=== PATIENT | male | born 1985 | race Caucasian/White ===

== ENCOUNTER 2022-08-29 23:47 | Inpatient (IN) | payer OTHER, SELFPAY ==
--- NOTE | ~2022-08-29 | CT_ITS ---
EXAMINATION: CT brain wo con DATE: 08/30/2022 02:17 INDICATION: Head injury. TECHNIQUE: Computed tomography (CT) of the head was performed without intravenous contrast. The mA wa s adjusted according to patient size. Iterative reconstruction technique was employed. The dose-lengt h product was 681.00 mGy-cm. COMPARISON: None FINDINGS: There is no intracranial hemorrhage, acute infarction, or abnormal intracranial mass lesion . The ventricles are normal in size. There is mild mucosal thickening in the paranasal sinuses. The o rbits are normal. The mastoid air cells are normal. IMPRESSION: 1. Normal brain. Reviewed, dictated and finalized at location A. IMPRESSION: 1. Normal brain.
--- NOTE | ~2022-08-29 | XR_ITS ---
EXAMINATION: XR chest 1V portable DATE: 08/30/2022 00:59 INDICATION: Abnormal liver function tests. Left shoulder pain. TECHNIQUE: A single frontal view of the chest was obtained. COMPARISON: None. FINDINGS: The chest demonstrates clear lungs without pneumonia, pleural effusion, or pneumothorax. Th e heart size is normal. There is a comminuted fracture of distal left clavicle. IMPRESSION: 1. Comminuted fracture of distal left clavicle. Reviewed, dictated and finalized at location A.
--- NOTE | ~2022-08-29 | CT_ITS ---
EXAMINATION: CT cervical spine wo con DATE: 08/30/2022 02:18 INDICATION: Head injury. TECHNIQUE: Computed tomography (CT) of the cervical spine was performed without intravenous contrast. Automated exposure control and iterative reconstruction technique were employed. The dose-length pro duct was 367.58 mGy-cm. COMPARISON: None FINDINGS: There is 6 degrees dextrocurvature of cervical spine. Vertebral body heights are normal. Th ere is mildly decreased disc height at C5-C6. There is a fracture of left T1 transverse process. Ther e are fractures of left first and second ribs. The following disc levels are specifically discussed: C2-C3: There is no uncovertebral joint osteoarthritis. There is mild right and moderate left facet sawyer int osteoarthritis. There is mild left neural foraminal stenosis. There is no central canal stenosis. C3-C4: There is mild right and severe left uncovertebral joint osteoarthritis. There is mild right fa cet joint osteoarthritis. There is mild left neural foraminal stenosis. There is no central canal edie nosis. C4-C5: There is mild left uncovertebral joint osteoarthritis. There is mild bilateral facet joint ost eoarthritis. There is no neural foraminal stenosis. There is no central canal stenosis. C5-C6: There is mild bilateral uncovertebral joint osteoarthritis. There is no facet joint osteoarthr itis. There is no neural foraminal stenosis. There is mild central canal stenosis. C6-C7: There is mild bilateral uncovertebral joint osteoarthritis. There is mild bilateral facet join t osteoarthritis. There is no neural foraminal stenosis. There is mild central canal stenosis. C7-T1: There is no uncovertebral joint osteoarthritis. There is moderate bilateral facet joint osteoa rthritis. There is mild bilateral neural foraminal stenosis. There is no central canal stenosis. IMPRESSION: 1. Fractures of left T1 transverse process and left first and second ribs. 2. Mild cervical spondylosis. Reviewed, dictated and finalized at location A.
--- NOTE | ~2022-08-29 | CT_ITS ---
[facility]AM[facility]: [facility] DATE: 08/30/2022 03:15 INDICATION: Chest and abdominal injury. TECHNIQUE: Computed tomography (CT) of the chest, abdomen, pelvis, thoracic spine, and lumbar spine w as performed with 100 mL Omnipaque 350 intravenous contrast. Automated exposure control and iterative reconstruction technique were employed. The dose-length product was 796.01 mGy-cm. COMPARISON: None FINDINGS: CHEST CT: The lungs demonstrate mild dependent atelectasis. No pleural effusion. The heart size is normal. No p ericardial effusion. There is a comminuted fracture of distal left clavicle. ABDOMEN/PELVIS CT: There is diffuse hepatic steatosis. The gallbladder, spleen, pancreas, adrenal glands, and kidneys ar e normal. There are no dilated loops of bowel. The appendix is normal. There are no pathologically en larged lymph nodes. There is no free intraperitoneal fluid. THORACIC SPINE CT: There is 8 degrees dextrocurvature of thoracic spine. There is a fracture of left T1 transverse proce ss. There are fractures of the heads of the left first and second ribs. There is a Schmorl's node of inferior endplate of T11. There is mildly decreased disc height at T11-T12. At T11-T12, the disc is b ulging with mild central canal stenosis. There is multilevel mild facet joint osteoarthritis. No neur al foraminal stenosis. LUMBAR SPINE CT: Bone alignment is normal. Vertebral body heights are normal. Intervertebral disc heights are normal. The following disc levels are specifically discussed: L1-L2: The disc does not extend beyond the endplate margin. There is mild bilateral facet joint osteo arthritis. There is no neural foraminal stenosis. There is no central canal stenosis. L2-L3: The disc does not extend beyond the endplate margin. There is mild bilateral facet joint osteo arthritis. There is no neural foraminal stenosis. There is no central canal stenosis. L3-L4: There is a left foraminal protrusion. There is mild bilateral facet joint osteoarthritis. Ther e is no neural foraminal stenosis. There is no central canal stenosis. L4-L5: The disc is bulging. There is mild bilateral facet joint osteoarthritis. There is mild bilater al neural foraminal stenosis. There is no central canal stenosis. L5-S1: The disc is bulging. There is mild bilateral facet joint osteoarthritis. There is mild bilater al neural foraminal stenosis. There is no central canal stenosis. IMPRESSION: 1. Comminuted fracture of distal left clavicle. 2. Fracture of left T1 transverse process. 3. Fractures of the heads of the left first and second ribs. Reviewed, dictated and finalized at location A.
--- NOTE | ~2022-08-29 | XR_ITS ---
EXAMINATION: XR shoulder LT min 2V DATE: 08/30/2022 00:59 INDICATION: Left shoulder pain. TECHNIQUE: 2 views of left shoulder were obtained. COMPARISON: None. FINDINGS: There is a comminuted fracture of distal left clavicle. The distal fracture fragments demon strate superior and inferior displacement. Joint spaces are normal. IMPRESSION: 1. Comminuted fracture of distal left clavicle. Reviewed, dictated and finalized at location A.
[2022-08-30] VITALS (11 sets, daily range): BP systolic 106–144; BP diastolic 54–100; PULSE 68–117; RESP 12–20; TEMP 36.3–36.6; O2SAT 98–100; BMI 24.5
--- NOTE | 2022-08-30 00:10 | ECG_ITS ---
Measurements Intervals [place] Rate: 97 P: 48 GA: 124 QRS: 35 QRSD: 92 T: 52 QT: 336 QTc: 427 Interpretive Statements SINUS RHYTHM NORMAL ECG NO PREVIOUS ECG AVAILABLE FOR COMPARISON Electronically Signed On 08-30-2022 12:33:26 CDT by Hussein Page M.D.
[2022-08-30] MEDS: LACTATED RINGERS 1,000 ML 999 ML IV CONT ×2 (00:28→03:37)
[2022-08-30] MEDS: LORazepam (*CRX) 1 MG TABLET PO (00:29)
[2022-08-30 01:11] LABS: Basophils Absolute Auto 0.1 K/mm3 (0.0-0.1); Basophils Percent Auto 0.7 % (0.2-1.2); Eosinophils Percent Auto 0.1 % (0-4.4); Hematocrit 45.5 % (42.0-52.0); Hemoglobin 15.7 g/dL (14.0-18.0); Immature Granulocyte Absolute 0.09 K/mm3 (0.00-0.031); Immature Granulocyte Percent A 0.6 % (0-0.5); Lymphocytes Absolute Auto 0.46 K/mm3 (0.9-3.2); Mean Corpuscular HGB Conc 34.5 g/dl (32-36); Mean Corpuscular Hemoglobin 32.2 pg (26-34); Mean Corpuscular Volume 93.4 fl (80-100); Mean Platelet Volume 9.8 fl (7.4-10.4); Monocytes Absolute Auto 0.8 K/mm3 (0.1-0.6); Monocytes Percent Auto 5.2 % (2.6-8.5); Neutrophils Absolute Auto 13.9 K/mm3 (1.3-6.7); Neutrophils Percent Auto 90.4 % (45.5-73.1); Platelet Count Result 197 k/mm3 (150-375); Red Blood Count 4.87 M/mm3 (4.6-6.20); Red Cell Distribution Width 11.9 % (11.5-14.5); White Blood Count 15.3 K/mm3 (4.5-10.0)
[2022-08-30] MEDS: ACETAMINOPHEN 500 MG TABLET 1000 MG PO (01:15)
[2022-08-30] MEDS: TETANUS,DIPHTHERIA,AC PERTUSSIS ADULT (0.5 ML) BOOSTRIX IM (01:15)
[2022-08-30 01:24] LABS: Acetaminophen < 10 ug/mL (10-30); Ethanol < 10 mg/dL (<10); Salicylate < 1.0 mg/dL (2-20)
--- NOTE | 2022-08-30 01:27 | PC.NURSE ---
Pt attempted to provide urine sample, unsuccessful. Urinal at bedside. EDP Hao aware.
[2022-08-30 01:35] LABS: Alanine Aminotransferase 397 U/L (6-50); Albumin Level 4.7 g/dL (3.5-5.1); Alkaline Phosphatase 87 U/L (38-126); Anion Gap 21 mmol/L (8-16); Bilirubin,Total 1.5 mg/dL (0.2-1.3); Blood Urea Nitrogen 20 mg/dL (9-20); Calcium 9.7 mg/dL (8.4-10.2); Carbon Dioxide 21 mmol/L (22-30); Chloride 97 mmol/L (98-107); Estimated CRCL calculation 71 ml/min; Estimated Glomerular Filt Rate 58; Glucose 78 mg/dL (65-110); Potassium 3.9 mmol/L (3.4-5.0); Sodium 139 mmol/L (137-145)
[2022-08-30 02:03] LABS: Aspartate Amino Transferase 2333 U/L (17-59)
--- NOTE | 2022-08-30 02:07 | WC.ED.TRAUMA ---
HPI - Trauma General Chief Complaint: Extremity Injury, Upper Stated Complaint: posible shoulder injury Time Seen by Provider: 08/29/22 23:50 History of Present Illness HPI narrative: 56-year-old male with history of polysubstance use disorder was found by police knocking on random doors and holding a stick, he gives us further convoluted account of things but ultimately states that he had fallen earlier, is not sure why exactly, but thinks that he broke his collarbone. He does admit using meth recently and states that that was a mistake. Does have history of bipolar disorder. Denies any other drug use. Is endorsing pain in his left shoulder and body aches all over. Related Data Allergies Allergy/AdvReac Type Severity Reaction Status Date / Time No Known Allergies Allergy Verified 08/30/22 01:06 Review of Systems Review of Systems: CONST: No fever. HEENT: Head trauma C/V: No chest pain; pain in left clavicle RESP: Mild shortness of breath GI: Minimal abdominal discomfort : Dark urine M/S: Left shoulder pain SKIN: Abrasions lower extremities NEURO: [No focal numbness or weakness] PSYCH: States that there are snakes going after him Exam Narrative: EXAMINATION OF ORGAN SYSTEMS/BODY AREAS: Constitutional: Vital signs per nursing GENERAL: Appears slightly agitated HEAD: Contusion left head EYES: EOMI, conjunctiva normal ENT: Hearing grossly intact LUNGS: Nonlabored breathing. Tenderness palpation left clavicle HEART: Tachycardic ABD: [Soft], [nontender to palpation] EXT: Normal range of motion, abrasions and bruising bilateral upper and lower extremities SKIN: Abrasion and bruising as above NEURO: [Alert and oriented x 3. No gross focal sensory or strength deficits.] PSYCH: Talking to himself in room, hyperverbal Course Vital Signs Vital signs: Vital Signs Pulse Rate 111 H 08/30/22 00:05 Respiratory Rate 12 08/30/22 00:05 Blood Pressure 129/100 H 08/30/22 00:05 Pulse Oximetry 100 08/30/22 00:05 Oxygen Delivery Room Air 08/30/22 00:05 Pulse Rate 98 08/30/22 05:30 Respiratory Rate 16 08/30/22 05:30 Blood Pressure 124/78 08/30/22 05:30 Pulse Oximetry 98 08/30/22 05:30 Oxygen Delivery Room Air 08/30/22 00:05 MDM - Trauma MDM Narrative Medical decision making narrative: 36-year-old male presents after being found by police wandering into [employer], he is endorsing pain to his left clavicle, vital signs notable for tachycardia, on exam he does have a left clavicle tenderness and abrasions everywhere, he does admit to recent meth use. Abdomen is soft and nontender. Differential includes meth induced psychosis or chest pain, clavicle fracture, rhabdomyolysis. Labs obtained notable for leukocytosis, and mildly elevated creatinine, and extremely elevated AST. UA shows ketones and blood and WBCs. Patient is hydrated, started on antibiotics tentatively for the possible UTI per hospitalist request, I did discuss with gastroenterology regarding his elevated AST and the marine consultant recommended admission and work-up with hepatic panel. Imaging showed shoulder x-ray/chest x-ray with clavicle fracture on the left, which patient is placed in a sling, normal CT head, CT C-spine did show a T spine transverse process fracture, given this I did obtain a CT chest, abdomen, pelvis given the patient is a poor historian to make sure there were no other signs of trauma including any signs of internal injuries. This is negative for anything else other than the aforementioned fractures. Patient has no neurologic symptoms, routine consult to neurosurgeon placed, case discussed with hospitalist for admission at this time. Critical care time 31 minutes Lab Data Result diagrams: 08/30/22 00:31 08/30/22 00:31 Labs: Lab Results 08/30/22 08/30/22 08/30/22 Range/Units 00:31 00:31 00:31 WBC 15.3 H (4.5-10.0) K/mm3 RBC 4.87 (4.6-6.20) M/mm3 Hgb 15.7
[2022-08-30 02:53] LABS: Appearance Urine Clear (Clear); Bilirubin Urine 3+ (Negative); Blood Urine 3+ (Negative); Color Urine Amber (Yellow); Glucose Urine UA Negative (Negative); Ketones Urine 4+ mg/dL (Negative); Leukocyte Esterase Ur Negative LEU/UL (Negative); Nitrate Urine Negative (Negative); Protein Urine 3+ mg/dL (Negative); Specific Grav Ur >= 1.030 (1.001-1.035)
[2022-08-30 03:00] LABS: Bacteria Urine Trace /hpf; Mucus Urine Few /lpf; Squamous Epithelial Cell Urine Rare /hpf (Few); WBC Urine 21-30 /hpf
[2022-08-30 03:07] LABS: Add Urine Microscopic? YES
[2022-08-30 03:08] LABS: Barbiturate Screen Urine Negative (Negative); Benzodiazepines Screen Urine Positive (Negative)
[2022-08-30 03:34] LABS: Amphetamine Screen Urine Positive (Negative); Cannabinoid Screen Urine Negative (Negative); Cocaine Screen Urine Negative (Negative); Methadone Screen Urine Negative (Negative); Opiate Screen Urine Positive (Negative); Phencyclidine Screen Urine Negative (Negative)
[2022-08-30 04:54] LABS: SARS-CoV-2 RNA PCR Negative
--- NOTE | 2022-08-30 05:02 | PM.IMHP ---
H&P: HPI History of Present Illness Date/Time: 08/30/22 05:02 Chief Complaint: 36 years old male with polysubstance abuse history of bipolar presented to the hospital by police patient was knocking on the doors holding a stick patient is poor historian patient also was complaining of possible fracture of collarbone as he has multiple falls history was taken from the ER record and the patient and ER physician at the ER patient was found to have significantly elevated AST normal liver function test abnormal UA leukocytosis CT scan of the head chest x-ray CT scan of the chest abdomen and pelvis is pending patient was admitted to the hospital for acute liver injury management UTI management and altered mental status per ER physician patient have right clavicular fracture Review of Systems Review of Systems: Twelve system review was negative except above Meds Home Medications and Allergies Allergies Allergy/AdvReac Type Severity Reaction Status Date / Time No Known Allergies Allergy Verified 08/30/22 01:06 Vital Signs Vital Signs - 24 hr 08/30/22 00:05 08/30/22 00:58 08/30/22 03:16 Pulse Rate 111 H 103 H 104 H Respiratory Rate 12 20 19 Blood Pressure 129/100 H 140/93 H 116/97 H Pulse Oximetry 100 100 Oxygen Delivery Room Air Exam Narrative: GENERAL: Lying in bed comfortable HEAD: Normocephalic, atraumatic. NECK: Supple. No adenopathy, no masses. RESPIRATORY: Airway patent, respirations nonlabored. Clear to auscultation bilaterally, no rales, rhonchi, wheezing. CARDIOVASCULAR: Regular rate and rhythm without murmurs, rubs, or gallops. Peripheral pulses 2+ and equal bilaterally. ABDOMINAL: Soft, nontender, nondistended, no hepatosplenomegaly. Normoactive BS. MUSCULOSKELETAL: Left clavicular tenderness associated with restriction of the joint movement of the left shoulder area SKIN: Warm, dry, normal color. No rashes. NEURO: Alert oriented no focal deficit PSYCHIATRIC: Appropriate mood and affect. Normal interaction. H&P: Results Labs Labs: Short CBC 08/30/22 Range/Units 00:31 WBC 15.3 H (4.5-10.0) K/mm3 Hgb 15.7 (14.0-18.0) g/dL Hct 45.5 (42.0-52.0) % Plt Count 197 (150-375) k/mm3 [facility] 08/30/22 00:31 Sodium 139 Potassium 3.9 Chloride 97 L Carbon Dioxide 21 L BUN 20 Creatinine 1.40 H Glucose 78 Calcium 9.7 Liver Function 08/30/22 Range/Units 00:31 Total Bilirubin 1.5 H (0.2-1.3) mg/dL AST 2333 H (17-59) U/L ALT 397 H (6-50) U/L Alkaline Phosphatase 87 (38-126) U/L Albumin 4.7 (3.5-5.1) g/dL Urine 08/30/22 Range/Units 02:36 Urine Color Elise (Yellow) Urine Appearance Clear (Clear) Urine pH 6.0 (5.0-9.0) Ur Specific [place] >= 1.030 (1.001-1.035) Urine Protein 3+ H (Negative) mg/dL Urine Glucose (UA) Negative (Negative) mg/dL Assessment and Plan Assessment and plan (1) Abnormal LFTs: Code(s): R79.89 - Other specified abnormal findings of blood chemistry Status: Acute Assessment and Plan: Check CK check hepatitis panel reviewed urine toxic screen check HIV A GI consult Pending CT scan of abdomen and pelvis Conservative management IV hydration Avoid hepatotoxic medication (2) UTI (urinary tract infection): Code(s): N39.0 - Urinary tract infection, site not specified Status: Acute Assessment and Plan: Started on Rocephin follow urine culture (3) Dehydration: Code(s): E86.0 - Dehydration Status: Acute Assessment and Plan: IV fluid (4) Polysubstance dependence including opioid type drug, episodic abuse: Code(s): F11.20 - Opioid dependence, uncomplicated; F19.20 - Other psychoactive substance dependence, uncomplicated Status: Acute Assessment and Plan: Follow-up with rehab as outpatient Counseling when patient is more alert (5) Acute metabolic encephalopathy: Code(s): G93.41 - Metabolic encephalopathy Status:
[2022-08-30 05:18] LABS: Partial Thromboplastin Time 23.7 SECONDS (22.3-36.8); Prothrombin Time 12.7 Seconds (11.1-14.7)
[2022-08-30 06:10] LABS: Hepatitis B Surface Antigen Negative (Negative)
[2022-08-30 06:16] LABS: HAV RESULT Negative (Negative); Hepatitis B Core IgM Result Negative (Negative)
--- NOTE | 2022-08-30 06:19 | PC.NURSE ---
Patient arrived on 3 Med-Surg at 6:09 on 08/30/2022
[2022-08-30 06:28] LABS: Hepatitis C Virus Antibody Negative (Negative)
[2022-08-30 07:52] LABS: Creatine Kinase > 16000 U/L (55-170)
--- NOTE | 2022-08-30 08:30 | PC.NURSE ---
maintenance mechanic 2nd shift RN reached out to family to try to get better information. Grandmother called back and states that patient has been living in [place] for the last 7 years and just recently came back to this area. She states that patient has stopped by a few times in the last couple of days, but has been staying at a friend's house. She does not know what friend he stays with. She said that his mother has been in [place] and that she raised the patient. She does not know of any past surgeries, but states that patient has depression, anxiety and ADHD and has had problems with drugs in the past. She states that the last time she saw him he looked like he was high on drugs and that he was planning to go back to [place]. She believes that he stays with friends in [place] as well and does not have a current job or residence.
[2022-08-30] MEDS: SODIUM CHLORIDE 0.9% IV 1,000 ML 150 ML IV CONT (08:37)
[2022-08-30 08:49] LABS: Alanine Aminotransferase 365 U/L (6-50); Albumin Level 4.3 g/dL (3.5-5.1); Alkaline Phosphatase 78 U/L (38-126); Anion Gap 22 mmol/L (8-16); Bilirubin,Total 1.2 mg/dL (0.2-1.3); Blood Urea Nitrogen 18 mg/dL (9-20); Carbon Dioxide 18 mmol/L (22-30); Chloride 97 mmol/L (98-107); Estimated CRCL calculation 90 ml/min; Estimated Glomerular Filt Rate > 60; Glucose 91 mg/dL (65-110); Potassium 4.1 mmol/L (3.4-5.0); Sodium 137 mmol/L (137-145)
[2022-08-30 09:14] LABS: Thyroid Stimulating Hormone Reflex 0.546 uIU/mL (0.465-4.68)
[2022-08-30 09:22] LABS: Aspartate Amino Transferase 1945 U/L (17-59)
[2022-08-30 09:27] LABS: HIV 1/2 Ab P24 Ag Result Negative (Negative)
[2022-08-30 09:49] LABS: Basophils Absolute Auto 0.1 K/mm3 (0.0-0.1); Basophils Percent Auto 0.8 % (0.2-1.2); Eosinophils Absolute Auto 0.1 K/mm3 (0-0.3); Eosinophils Percent Auto 1.5 % (0-4.4); Hematocrit 41.2 % (42.0-52.0); Immature Granulocyte Absolute 0.04 K/mm3 (0.00-0.031); Immature Granulocyte Percent A 0.4 % (0-0.5); Lymphocytes Absolute Auto 1.55 K/mm3 (0.9-3.2); Lymphocytes Percent Auto 16.1 % (18.3-44.2); Mean Corpuscular Hemoglobin 32.1 pg (26-34); Mean Corpuscular Volume 94.5 fl (80-100); Mean Platelet Volume 9.4 fl (7.4-10.4); Monocytes Absolute Auto 0.9 K/mm3 (0.1-0.6); Monocytes Percent Auto 8.9 % (2.6-8.5); Neutrophils Percent Auto 72.3 % (45.5-73.1); Platelet Count Result 175 k/mm3 (150-375); Red Blood Count 4.36 M/mm3 (4.6-6.20); Red Cell Distribution Width 11.9 % (11.5-14.5); White Blood Count 9.6 K/mm3 (4.5-10.0)
--- NOTE | 2022-08-30 12:40 | PC.NURSE ---
pt was wanting to discharge/ leave ama, took out IV and took off tele monitor. pt was educated on the risk factors of leaving. pt willing to stay and be compliant. pt in room resting on bed with call light in reach.
--- NOTE | 2022-08-30 12:43 | PM.CNOR ---
Assessment and Plan Assessment and plan (1) Closed left clavicular fracture: Qualifiers: Encounter type: initial encounter Clavicle location: lateral end Fracture alignment: displaced Qualified Code(s): S42.032A - Displaced fracture of lateral end of left clavicle, initial encounter for closed fracture Code(s): S42.002A - Fracture of unspecified part of left clavicle, initial encounter for closed fracture Status: Acute Assessment and Plan: New patient evaluation status post injury left shoulder. The history, physical exam and radiographs reviewed with the patient. Type of fracture discussed in detail. Left lateral clavicle fx. Treatment options including operative and non operative treatment reviewed. Risks, benefits and alternatives of each treatment discussed in detail. The patient has declined surgical treatment. Risks of treatment decision discussed in detail. Potential problems with displacement of the fracture, loss of alignment, nonunion, malunion and dysfunction discussed in detail. The patient's questions were answered. They verbalized understanding and agreement. Conservative treatment with immobilization- sling, ice, pain control. Fracture precautions with light activity only. No overhead use. May adjust sling p.r.n. and remove for hygiene /dressing. Follow-up in 6 weeks for new radiographs. History of Present Illness HPI Consult date: 08/30/22 Requesting physician: Cher Sutton APN-C Consult reason: fracture Chief complaint: Left clavicle fracture Narrative: 36-year-old admitted through the emergency room early this morning after fall. Left shoulder pain. Found to have clavicle fracture. Denies numbness or tingling. Complains of pain over the distal collarbone and top of the shoulder. Review of Systems Constitutional: Constitutional: Denies fever(s) Eyes: Eyes: Denies blurry vision ENT: Reports Normal hearing present Cardiovascular: Cardiovascular: Denies chest pain and Denies dyspnea Respiratory: Respiratory: Denies dyspnea and Denies wheezing Gastrointestinal: Gastrointestinal: Denies abdominal pain Genitourinary: Genitourinary: Denies urinary urgency Musculoskeletal: Musculoskeletal: Reports as per HPI and Denies numbness Integumentary/Breasts: Skin/Breast: Denies changing lesions and Denies sores Neurologic: Reports Normal hearing present, Denies behavioral changes, Denies confusion, Denies numbness and Denies convulsions Psychiatric: Psychiatric: Denies behavioral changes, Denies confusion and Denies hallucinations Endocrine: Endocrine: Denies heat intolerance Hematologic/Lymphatic: Hematologic/Lymphatic: Denies easy bleeding Allergic/Immunologic: Allergic/Immunologic: Denies wheezing [facility] Social History Social History Smoking status: Never smoker Alcohol intake: former Substance use: former Substance use type: amphetamines Other substance usage details: see positive urine test. pt wont answer. Has the Lack of Transportation Kept You From Medical Appointments or From Getting Medications?: No Within the Past 12 Months, Were You Worried Whether Your Food Would Run Out Before You Got Money to Buy More?: Never True What is Your Housing Situation Today?: I Do Not Have Housing Are You Worried That in the Next 2 Months, You May Not Have Your Own Housing to Live In?: Decline to Answer Do You Have Trouble Paying Your Heating Or Electricity Bill?: Decline to Answer Do You Have Trouble Paying For Medicines?: Decline to Answer Are You Currently Unemployed and Looking for Work?: Decline to Answer Highest Level of Education Completed: Decline to Answer Do You Have Trouble With Childcare or the Care of a Family Member?: Decline to Answer Spiritual care concerns: No Meds Home Medications and Allergies Allergies Allergy/AdvReac Type Severity Reaction Status Date / Time No Known
--- NOTE | 2022-08-30 14:02 | PM.IMPN ---
Progress Note: A&P Assessment and Plan (1) Abnormal LFTs: Code(s): R79.89 - Other specified abnormal findings of blood chemistry Status: Acute Assessment and Plan: Check CK check hepatitis panel reviewed urine toxic screen check HIV A GI consult Pending CT scan of abdomen and pelvis Conservative management IV hydration Avoid hepatotoxic medication 08/30/22: CT of the abdomen pelvis negative with exception of what is mentioned HPI. GI consult is pending. IV fluids were increased to 150 mL/hour secondary to persistently elevated CK of greater than 16,000. In addition he continues to have marked Transaminitis. (2) UTI (urinary tract infection): Code(s): N39.0 - Urinary tract infection, site not specified Status: Acute Assessment and Plan: Started on Rocephin follow urine culture 08/30/22: Awaiting culture, continuing Rocephin (3) Dehydration: Code(s): E86.0 - Dehydration Status: Acute Assessment and Plan: Continue IVF of NS and increase the rate to 150 ml/hr. (4) Polysubstance dependence including opioid type drug, episodic abuse: Code(s): F11.20 - Opioid dependence, uncomplicated; F19.20 - Other psychoactive substance dependence, uncomplicated Status: Acute Assessment and Plan: Follow-up with rehab as outpatient Counseling when patient is more alert 08/30/22: Pt. admits that he uses meth, but is insistent that his record of events is factual. (5) Acute metabolic encephalopathy: Code(s): G93.41 - Metabolic encephalopathy Status: Acute Assessment and Plan: Most likely related to polysubstance abuse amphetamine benzos Narcotics Improved Pending CT scan of the head 08/30/22: Pt. still appears very confused in his factual events as noted in HPI. Although he is more alert, and his CT of brain is pending,. Pt. continues to appear confused. (6) Closed left clavicular fracture: Qualifiers: Clavicle location: lateral end Encounter type: initial encounter Fracture alignment: displaced Qualified Code(s): S42.032A - Displaced fracture of lateral end of left clavicle, initial encounter for closed fracture Code(s): S42.002A - Fracture of unspecified part of left clavicle, initial encounter for closed fracture Status: Acute Assessment and Plan: Pending final x-ray Left arm sling Pain control 08/30/22: Orthopedics consulted and pt. is in sling. They want to follow up in six weeks with him with imaging prior to the office visit. Treat pain prn. (7) Ribs, multiple fractures: Code(s): S22.49XA - Multiple fractures of ribs, unspecified side, initial encounter for closed fracture Status: Acute Assessment and Plan: 08/30/22: as evidence by chest x-ray and CT. Patient was educated on splinting for coughing sneezing. Treat pain p.r.n. (8) Fracture of transverse process of thoracic vertebra: Code(s): S22.009A - Unspecified fracture of unspecified thoracic vertebra, initial encounter for closed fracture Status: Acute Assessment and Plan: 08/30/22: neurosurgery consult pending. treat pain prn. Time Spent With Patient Time with patient: 25 - 35 minutes Subjective Date/time seen: 08/30/22 1130 This patient was examined at the bedside today interval assessment after being admitted to the hospital with profound rhabdomyolysis, transaminitis, cystitis and left clavicular fracture. This patient's story is very interesting as it is difficult to determine what is true and what is not. Patient presented to the emergency room in custody of police for evaluation after he was found to be knocking on random doors holding a stick, however his endorsed account of what happened was very convoluted in 2 year unable to determine what really happened. Patient states that he is here in the [place] for [employer] training in that he fell into a ravine. He states he land
--- NOTE | 2022-08-30 15:20 | WPDGICN ---
Assessment and Plan Assessment and plan (1) Abnormal LFTs: Code(s): R79.89 - Other specified abnormal findings of blood chemistry Status: Acute Assessment and Plan: most likely this is from elevated CK after having a fracture with multiple falls and also history of polysubstance abuse he may have underlying fatty liver disease but transaminases elevated as consequence of high CK levels I will recommend to repeat lft's as outpatient once CK level down to normal- if still high then may need further work up continue with hydration, monitor renal function hepatitis panel negative abdominal imaging reviewed follow from af[place], call if questions (2) Rhabdomyolysis: Code(s): M62.82 - Rhabdomyolysis Status: Acute Assessment and Plan: after a fall and fracture monitor (3) Closed left clavicular fracture: Qualifiers: Clavicle location: lateral end Encounter type: initial encounter Fracture alignment: displaced Qualified Code(s): S42.032A - Displaced fracture of lateral end of left clavicle, initial encounter for closed fracture Code(s): S42.002A - Fracture of unspecified part of left clavicle, initial encounter for closed fracture Status: Acute Assessment and Plan: ortho on board (4) Acute metabolic encephalopathy: Code(s): G93.41 - Metabolic encephalopathy Status: Acute Assessment and Plan: probably from polysubstance abuse by primary (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 Blood work in ER showed white blood cell count 15.3, acute kidney injury with creatinine of 1.4, total bilirubin of 1.5, AST of 2333, ALT 397, urinalysis with 3+ blood, 3+ bili 21-30 wbc's and trace bacteria.? His UDS was positive for opiates, amphetamines and benzodiazepines.? Alcohol was less than 10.? hepatitis panel negative and CK greater than 16,000.?CT scan of the left shoulder demonstrate a comminuted fracture of the distal left clavicle, evaluated by orthopedic.?CT a/p reviewed, diffuse hepatic steatosis. The gallbladder, spleen, pancreas, adrenal glands, and kidneys are normal. There are no dilated loops of bowel. The appendix is normal. There are no pathologically enlarged lymph nodes. There is no free intraperitoneal fluid. He denies history of liver disease. Drinks socially. Review of Systems Constitutional: Constitutional: Denies fever(s) Eyes: Eyes: Denies blurry vision ENT: Reports Normal hearing present Cardiovascular: Cardiovascular: Denies chest pain and Denies dyspnea Respiratory: Respiratory: Denies dyspnea and Denies wheezing Gastrointestinal: Gastrointestinal: Denies abdominal pain Genitourinary: Genitourinary: Denies urinary urgency Musculoskeletal: Musculoskeletal: Reports as per HPI and Denies numbness Integumentary/Breasts: Skin/Breast: Denies changing lesions and Denies sores Neurologic: Reports Normal hearing present and Denies numbness Psychiatric: Psychiatric: Reports as per HPI Endocrine: Endocrine: Denies heat intolerance Hematologic/Lymphatic: Hematologic/Lymphatic: Denies easy bleeding Allergic/Immunologic: Allergic/Immunologic: Denies wheezing PMFSH Past Medical History Medical History (Updated 08/30/22 @ 15:28 by Girish Huntley MD) Rhabdomyolysis Social History Social History Smoking status: Never smoker Alcohol intake: former Substance use: former Substance use type: amphe
[2022-08-30] MEDS: SODIUM CHLORIDE 0.9% IV 1,000 ML 250 ML IV CONT ×2 (16:08→23:16)
--- NOTE | 2022-08-30 21:18 | PC.NURSE ---
Pt agitated and uncooperative. Attempted to redirect and reorient pt, successful at first but then pt was found wandering the hallway wanting to leave. Pt directed back to room. Security and doctor called. New orders placed. Pt allowed by hot car charger and doctor to go out to his car accompanied by security. Medications will be administered to pt once he returns.
[2022-08-30] MEDS: HYDROcodone/acetaminophen (*CRX) 10-325 MG TABLET 1 TAB PO (21:43)
[2022-08-30] MEDS: TEMAZEPAM (*CRX) 15 MG CAPSULE PO (21:44)
[2022-08-30 23:36] LABS: Creatine Kinase > 16000 U/L (55-170)
[2022-08-30] MEDS: oxyCODONE HCL (*CRX) 5 MG TAB IR 10 MG PO (23:52)
[2022-08-31] VITALS (8 sets, daily range): BP systolic 122–133; BP diastolic 80–95; PULSE 90–106; RESP 18; TEMP 36.4–36.6; O2SAT 95–100
--- NOTE | 2022-08-31 02:58 | PM.EVENT ---
Event Note Event Note Event Note: Called to evaluate patient who was threatening to leave AMA. I spoke with the patient, reviewed his diagnoses, emphasize the risks of leaving due to severe rhabdomyolysis and ultimately patient decided to stay for further treatment.
[2022-08-31] MEDS: SODIUM CHLORIDE 0.9% IV 1,000 ML 250 ML IV CONT ×6 (03:03→20:59)
[2022-08-31] MEDS: oxyCODONE HCL (*CRX) 5 MG TAB IR 10 MG PO ×2 (04:52→08:49)
[2022-08-31 06:21] LABS: Basophils Absolute Auto 0.1 K/mm3 (0.0-0.1); Eosinophils Absolute Auto 0.3 K/mm3 (0-0.3); Eosinophils Percent Auto 3.8 % (0-4.4); Hematocrit 36.2 % (42.0-52.0); Hemoglobin 12.4 g/dL (14.0-18.0); Immature Granulocyte Absolute 0.02 K/mm3 (0.00-0.031); Immature Granulocyte Percent A 0.3 % (0-0.5); Lymphocytes Absolute Auto 1.46 K/mm3 (0.9-3.2); Lymphocytes Percent Auto 21.2 % (18.3-44.2); Mean Corpuscular HGB Conc 34.3 g/dl (32-36); Mean Corpuscular Hemoglobin 32.1 pg (26-34); Mean Corpuscular Volume 93.8 fl (80-100); Mean Platelet Volume 9.1 fl (7.4-10.4); Monocytes Absolute Auto 0.6 K/mm3 (0.1-0.6); Monocytes Percent Auto 8.4 % (2.6-8.5); Neutrophils Absolute Auto 4.5 K/mm3 (1.3-6.7); Neutrophils Percent Auto 65.3 % (45.5-73.1); Platelet Count Result 154 k/mm3 (150-375); Red Blood Count 3.86 M/mm3 (4.6-6.20); Red Cell Distribution Width 11.7 % (11.5-14.5); White Blood Count 6.9 K/mm3 (4.5-10.0)
[2022-08-31 06:57] LABS: Alanine Aminotransferase 298 U/L (6-50); Albumin Level 3.5 g/dL (3.5-5.1); Alkaline Phosphatase 63 U/L (38-126); Anion Gap 7 mmol/L (8-16); Bilirubin,Total 0.8 mg/dL (0.2-1.3); Blood Urea Nitrogen 9 mg/dL (9-20); Carbon Dioxide 25 mmol/L (22-30); Chloride 105 mmol/L (98-107); Estimated CRCL calculation 136 ml/min; Estimated Glomerular Filt Rate > 60; Glucose 116 mg/dL (65-110); Potassium 3.5 mmol/L (3.4-5.0); Sodium 137 mmol/L (137-145)
[2022-08-31 07:15] LABS: Aspartate Amino Transferase 1179 U/L (17-59)
[2022-08-31 07:33] LABS: Creatine Kinase > 16000 U/L (55-170)
[2022-08-31] MEDS: HEPARIN SODIUM 5,000 UNITS/ML VIAL 5000 UNITS SUB-Q (08:45)
--- NOTE | 2022-08-31 09:49 | PM.PNORT ---
Progress Note: A&P Assessment and Plan (1) Closed left clavicular fracture: Qualifiers: Clavicle location: lateral end Encounter type: initial encounter Fracture alignment: displaced Qualified Code(s): S42.032A - Displaced fracture of lateral end of left clavicle, initial encounter for closed fracture Code(s): S42.002A - Fracture of unspecified part of left clavicle, initial encounter for closed fracture Status: Acute Assessment and Plan: Left Clavicle fracture. History, physical exam and radiographs reviewed with the patient. Type of fracture discussed in detail. Left lateral clavicle fx. Treatment options including operative and non operative treatment reviewed. Risks, benefits and alternatives of each treatment discussed in detail. The patient has declined surgical treatment. Risks of treatment decision discussed in detail. Potential problems with displacement of the fracture, loss of alignment, nonunion, malunion and dysfunction discussed in detail. The patient's questions were answered. They verbalized understanding and agreement. Continue conservative treatment with immobilization, sling, ice, pain control. Fracture precautions with light activity only. No overhead use. May adjust sling p.r.n. and remove for hygiene /dressing. Follow-up in 6 weeks for new radiographs. If patient plans to return to [place] upon discharge from the hospital, he will need follow up arranged with an orthopedist in [place]. Subjective Subjective Date/Time Seen: 08/31/22 09:49 Principal diagnosis: Left Clavicle Fracture Interval history: Patient awake. Confused about nature of injury and how he presented to the hospital. States he was out hiking when he fell and hit his shoulder and his head. Concerned about the whereabouts of his car and his laptop. States he works from home and needs his computer so he is able to login to work. Difficulty with pain control. Otherwise, no new concerns. Review of Systems Review of Systems: All systems reviewed & are unremarkable except as noted in HPI and below Exam Const: General: healthy appearing; No in distress or confusion Orientation/consciousness: oriented to person, oriented to place, oriented to time and No confusion Eyes: Conjunctivae: conjunctivae normal Sclera: sclerae normal Neck: Neck: supple and nontender Resp: Effort & Inspection: normal respiratory effort and no audible wheezes Cardio: Rate: regular rate Rhythm: regular rhythm Neuro: General: oriented to person, oriented to place, oriented to time and No confusion Extrem: Right upper extremity: shoulder/upper arm axillary nerve sensory function normal, normal ROM and other (RC 5/5, Bicep 5/5, Deltoid 5/5, ER 5/5); no tenderness and no swelling, elbow/forearm normal ROM; no tenderness and no swelling, wrist normal ROM and radial pulse present; no tenderness and Extremity exam: right hand neuromotor exam normal wrist extension normal, thumb opposition normal, thumb IP flexion normal and fingers 2-5 ABduction normal, neurosensory exam normal radial nerve sensory function normal, ulnar nerve sensory function normal, median nerve sensory function normal and digital nerve sensory function normal and vascular exam radial pulse present and normal capillary refill; no tenderness, no swelling and no crepitus Left upper extremity: shoulder/upper arm abnormal to inspection clavicle deformity ( mid to lateral aspect), tenderness of the clavicle mid-shaft and laterally, axillary nerve sensory function normal, abnormal ROM pain with active ROM in ABduction and in internal rotation, pain with passive ROM in internal rotation and external rotation- and with range as follows (FF 10, Abd 10, ER 5, IR hip) and other (RC 4/5, Bicep 4/5, Deltoid 4/5, ER 4/5); no swelling, elbow/forearm normal ROM; no tenderness and no swelling, wrist normal ROM and radial pulse present; no tenderness and hand neuromotor exam normal Details: wrist ext
--- NOTE | 2022-08-31 10:45 | P.PNIM_ITS ---
Progress Note: A&P Assessment and Plan (1) Rhabdomyolysis: Code(s): M62.82 - Rhabdomyolysis Status: Acute Assessment and Plan: * IV fluids were increased to 150 mL/hour * [place] >18270 * Continue to trend CK * Trend urine output * Probably the cause for the TANNER * Continue to trend labs (2) Abnormal LFTs: Code(s): R79.89 - Other specified abnormal findings of blood chemistry Status: Acute Assessment and Plan: * AST/ALT elevated at 1179/298 * Hep panel negative * Continue to trend * Consider RUQ ultrasound * Check CK check hepatitis panel reviewed urine toxic screen check HIV * GI consult thank you for your help * CT of the abdomen pelvis negative with multiple rib fractures, T1 transverse process, and left clavicle (3) TANNER (acute kidney injury): Code(s): N17.9 - Acute kidney failure, unspecified Status: Acute Assessment and Plan: * BUN/Cr elevated upon admission * Currently back to his probably baseline * Continue IV fluids * Continue to trend labs * Adjust therapy as indicated (4) UTI (urinary tract infection): Code(s): N39.0 - Urinary tract infection, site not specified Status: Acute Assessment and Plan: * Resolved * Urine culture shows no growth * Started on Rocephin follow urine culture * 08/30/22: Awaiting culture, continuing Rocephin (5) Polysubstance dependence including opioid type drug, episodic abuse: Code(s): F11.20 - Opioid dependence, uncomplicated; F19.20 - Other psychoactive substance dependence, uncomplicated Status: Acute Assessment and Plan: * Follow-up with rehab as outpatient * Counseling when patient is more alert * Denies regular use * Counselled about pain control (6) Acute metabolic encephalopathy: Code(s): G93.41 - Metabolic encephalopathy Status: Acute Assessment and Plan: Resolved Most likely related to polysubstance abuse amphetamine benzos Narcotics Improved CT scan of the head normal brain * 08/30/22: Pt. still appears very confused in his factual events as noted in HPI. Although he is more alert, and his CT of brain is pending,. Pt. continues to appear confused. (7) Closed left clavicular fracture: Qualifiers: Clavicle location: lateral end Encounter type: initial encounter Fracture alignment: displaced Qualified Code(s): S42.032A - Displaced fracture of lateral end of left clavicle, initial encounter for closed fracture Code(s): S42.002A - Fracture of unspecified part of left clavicle, initial encounter for closed fracture Status: Acute Assessment and Plan: Pending final x-ray Left arm sling Pain control * 08/30/22: Orthopedics consulted and pt. is in sling. They want to follow up in six weeks with him with imaging prior to the office visit. * Treat pain prn. * Stable (8) Ribs, multiple fractures: Code(s): S22.49XA - Multiple fractures of ribs, unspecified side, initial encounter for closed fracture Status: Acute Assessment and Plan: 08/30/22: as evidence by chest x-ray and CT. Patient was educated on splinting for coughing sneezing. Treat pain p.r.n. Stable (9) Fracture of transverse process of thoracic vertebra: Code(s): S22.009A
--- NOTE | 2022-08-31 10:45 | PM.IMPN ---
Progress Note: A&P Assessment and Plan (1) Rhabdomyolysis: Code(s): M62.82 - Rhabdomyolysis Status: Acute Assessment and Plan: IV fluids were increased to 150 mL/hour Current CK is >44336 Continue to trend CK Trend urine output Probably the cause for the TANNER Continue to trend labs (2) Abnormal LFTs: Code(s): R79.89 - Other specified abnormal findings of blood chemistry Status: Acute Assessment and Plan: AST/ALT elevated at 1179/298 Hep panel negative Continue to trend Consider RUQ ultrasound Check CK check hepatitis panel reviewed urine toxic screen check HIV GI consult thank you for your help CT of the abdomen pelvis negative with multiple rib fractures, T1 transverse process, and left clavicle (3) TANNER (acute kidney injury): Code(s): N17.9 - Acute kidney failure, unspecified Status: Acute Assessment and Plan: BUN/Cr elevated upon admission Currently back to his probably baseline Continue IV fluids Continue to trend labs Adjust therapy as indicated (4) UTI (urinary tract infection): Code(s): N39.0 - Urinary tract infection, site not specified Status: Acute Assessment and Plan: Resolved Urine culture shows no growth Started on Rocephin follow urine culture 08/30/22: Awaiting culture, continuing Rocephin (5) Polysubstance dependence including opioid type drug, episodic abuse: Code(s): F11.20 - Opioid dependence, uncomplicated; F19.20 - Other psychoactive substance dependence, uncomplicated Status: Acute Assessment and Plan: Follow-up with rehab as outpatient Counseling when patient is more alert Denies regular use Counselled about pain control (6) Acute metabolic encephalopathy: Code(s): G93.41 - Metabolic encephalopathy Status: Acute Assessment and Plan: Resolved Most likely related to polysubstance abuse amphetamine benzos Narcotics Improved CT scan of the head normal brain 08/30/22: Pt. still appears very confused in his factual events as noted in HPI. Although he is more alert, and his CT of brain is pending,. Pt. continues to appear confused. (7) Closed left clavicular fracture: Qualifiers: Clavicle location: lateral end Encounter type: initial encounter Fracture alignment: displaced Qualified Code(s): S42.032A - Displaced fracture of lateral end of left clavicle, initial encounter for closed fracture Code(s): S42.002A - Fracture of unspecified part of left clavicle, initial encounter for closed fracture Status: Acute Assessment and Plan: Pending final x-ray Left arm sling Pain control 08/30/22: Orthopedics consulted and pt. is in sling. They want to follow up in six weeks with him with imaging prior to the office visit. Treat pain prn. Stable (8) Ribs, multiple fractures: Code(s): S22.49XA - Multiple fractures of ribs, unspecified side, initial encounter for closed fracture Status: Acute Assessment and Plan: 08/30/22: as evidence by chest x-ray and CT. Patient was educated on splinting for coughing sneezing. Treat pain p.r.n. Stable (9) Fracture of transverse process of thoracic vertebra: Code(s): S22.009A - Unspecified fracture of unspecified thoracic vertebra, initial encounter for closed fracture Status: Acute Assessment and Plan: 08/30/22: neurosurgery consult pending. treat pain prn. Time Spent With Patient Time with patient: Greater than 35 minutes Subjective Date/time seen: 08/31/22 1045 Interval history: Patient is a 36-year-old male who is here for fall and rhabdomyolysis. Today patient stated that he is doing okay. He denies any dyspnea, nausea, vomiting, diarrhea, constipation, headache, weakness or lightheadedness. Patient did state that he was having some generaliz
[2022-08-31] MEDS: HYDROmorphone HCL INJ (*CRX) 1 MG/ML SYR IV PUSH ×3 (11:59→21:20)
[2022-09-01] MEDS: SODIUM CHLORIDE 0.9% IV 1,000 ML 250 ML IV CONT ×6 (01:07→21:57)
[2022-09-01] MEDS: HYDROmorphone HCL INJ (*CRX) 1 MG/ML SYR IV PUSH ×6 (01:08→21:57)
[2022-09-01 06:00] VITALS: BP 115/85; PULSE 88; RESP 18; TEMP 37.1; O2SAT 90
[2022-09-01 06:54] LABS: Basophils Absolute Auto 0.1 K/mm3 (0.0-0.1); Basophils Percent Auto 0.9 % (0.2-1.2); Eosinophils Absolute Auto 0.2 K/mm3 (0-0.3); Eosinophils Percent Auto 2.8 % (0-4.4); Hematocrit 34.9 % (42.0-52.0); Hemoglobin 11.7 g/dL (14.0-18.0); Immature Granulocyte Absolute 0.03 K/mm3 (0.00-0.031); Immature Granulocyte Percent A 0.4 % (0-0.5); Lymphocytes Absolute Auto 1.83 K/mm3 (0.9-3.2); Mean Corpuscular HGB Conc 33.5 g/dl (32-36); Mean Corpuscular Hemoglobin 31.5 pg (26-34); Mean Corpuscular Volume 93.8 fl (80-100); Mean Platelet Volume 9.4 fl (7.4-10.4); Monocytes Absolute Auto 0.7 K/mm3 (0.1-0.6); Monocytes Percent Auto 10.1 % (2.6-8.5); Neutrophils Absolute Auto 4.2 K/mm3 (1.3-6.7); Neutrophils Percent Auto 59.8 % (45.5-73.1); Platelet Count Result 166 k/mm3 (150-375); Red Blood Count 3.72 M/mm3 (4.6-6.20); Red Cell Distribution Width 11.4 % (11.5-14.5)
[2022-09-01 07:07] LABS: Alanine Aminotransferase 268 U/L (6-50); Albumin Level 3.6 g/dL (3.5-5.1); Alkaline Phosphatase 61 U/L (38-126); Anion Gap 9 mmol/L (8-16); Aspartate Amino Transferase 730 U/L (17-59); Bilirubin,Total 0.6 mg/dL (0.2-1.3); Blood Urea Nitrogen 4 mg/dL (9-20); Calcium 8.4 mg/dL (8.4-10.2); Carbon Dioxide 30 mmol/L (22-30); Chloride 100 mmol/L (98-107); Estimated CRCL calculation 136 ml/min; Estimated Glomerular Filt Rate > 60; Glucose 104 mg/dL (65-110); Magnesium 1.8 mg/dL (1.6-2.3); Potassium 3.8 mmol/L (3.4-5.0); Sodium 139 mmol/L (137-145)
[2022-09-01 07:48] LABS: Creatine Kinase 12968 U/L (55-170)
[2022-09-01] MEDS: HEPARIN SODIUM 5,000 UNITS/ML VIAL 5000 UNITS SUB-Q ×2 (08:45→21:57)
--- NOTE | 2022-09-01 10:23 | PC.NURSE ---
Medications administered 09/01/22 [id number] by Kayla Black RN.
--- NOTE | 2022-09-01 10:30 | PM.IMPN ---
Progress Note: A&P Assessment and Plan (1) Rhabdomyolysis: Code(s): M62.82 - Rhabdomyolysis Status: Acute Assessment and Plan: IV fluids were increased to 150 mL/[place] [address] Continue to trend CK Trend urine output Probably the cause for the TANNER Continue to trend labs (2) Abnormal LFTs: Code(s): R79.89 - Other specified abnormal findings of blood chemistry Status: Acute Assessment and Plan: AST/ALT elevated at trending down currently 730/268 Hep panel negative Continue to trend Consider RUQ ultrasound Check CK check hepatitis panel reviewed urine toxic screen check HIV GI consult thank you for your help CT of the abdomen pelvis negative with multiple rib fractures, T1 transverse process, and left clavicle (3) TANNER (acute kidney injury): Code(s): N17.9 - Acute kidney failure, unspecified Status: Acute Assessment and Plan: BUN/Cr elevated upon admission Currently back to his probably baseline Continue IV fluids Continue to trend labs Adjust therapy as indicated Remains stable (4) Polysubstance dependence including opioid type drug, episodic abuse: Code(s): F11.20 - Opioid dependence, uncomplicated; F19.20 - Other psychoactive substance dependence, uncomplicated Status: Acute Assessment and Plan: Follow-up with rehab as outpatient Counseling when patient is more alert Denies regular use Counselled about pain control (5) Acute metabolic encephalopathy: Code(s): G93.41 - Metabolic encephalopathy Status: Acute Assessment and Plan: Resolved Most likely related to polysubstance abuse amphetamine benzos Narcotics Improved CT scan of the head normal brain (6) Closed left clavicular fracture: Qualifiers: Clavicle location: lateral end Encounter type: initial encounter Fracture alignment: displaced Qualified Code(s): S42.032A - Displaced fracture of lateral end of left clavicle, initial encounter for closed fracture Code(s): S42.002A - Fracture of unspecified part of left clavicle, initial encounter for closed fracture Status: Acute Assessment and Plan: Pending final x-ray Left arm sling Pain control seems to be effective with Dilaudid and Percocet Treat pain prn. Stable (7) Ribs, multiple fractures: Code(s): S22.49XA - Multiple fractures of ribs, unspecified side, initial encounter for closed fracture Status: Acute Assessment and Plan: 08/30/22: as evidence by chest x-ray and CT. Patient was educated on splinting for coughing sneezing. Treat pain p.r.n. Stable (8) Fracture of transverse process of thoracic vertebra: Code(s): S22.009A - Unspecified fracture of unspecified thoracic vertebra, initial encounter for closed fracture Status: Acute Assessment and Plan: 08/30/22: neurosurgery consult pending. treat pain prn. Time Spent With Patient Time with patient: Greater than 35 minutes Subjective Date/time seen: 09/01/22 1030 Interval history: 09/01/22 1030 Patient seems to be doing well today. He seems very anxious disorganized anyway with thought. He is ready to go however explained to him that his CK is still too high. He denies any chest pain, shortness a breath, nausea, vomiting, diarrhea, constipation, weakness or fatigue. He is still having a pain especially in his chest from the rib fractures and that the shoulder. He denies any urinary difficulties. 08/31/22 Patient is a 36-year-old male who is here for fall and rhabdomyolysis. Today patient stated that he is doing okay. He denies any dyspnea, nausea, vomiting, diarrhea, constipation, headache, weakness or lightheadedness. Patient did state that he was having some generalized chest pain and shortness of breath when he was sleeping. He currently has pain at
--- NOTE | 2022-09-01 10:30 | P.PNIM_ITS ---
Progress Note: A&P Assessment and Plan (1) Rhabdomyolysis: Code(s): M62.82 - Rhabdomyolysis Status: Acute Assessment and Plan: * IV fluids were increased to 150 mL/hour * [place] [address] * Continue to trend CK * Trend urine output * Probably the cause for the TANNER * Continue to trend labs (2) Abnormal LFTs: Code(s): R79.89 - Other specified abnormal findings of blood chemistry Status: Acute Assessment and Plan: * AST/ALT elevated at trending down currently 730/268 * Hep panel negative * Continue to trend * Consider RUQ ultrasound * Check CK check hepatitis panel reviewed urine toxic screen check HIV * GI consult thank you for your help * CT of the abdomen pelvis negative with multiple rib fractures, T1 transverse process, and left clavicle (3) TANNER (acute kidney injury): Code(s): N17.9 - Acute kidney failure, unspecified Status: Acute Assessment and Plan: * BUN/Cr elevated upon admission * Currently back to his probably baseline * Continue IV fluids * Continue to trend labs * Adjust therapy as indicated * Remains stable (4) Polysubstance dependence including opioid type drug, episodic abuse: Code(s): F11.20 - Opioid dependence, uncomplicated; F19.20 - Other psychoactive substance dependence, uncomplicated Status: Acute Assessment and Plan: * Follow-up with rehab as outpatient * Counseling when patient is more alert * Denies regular use * Counselled about pain control (5) Acute metabolic encephalopathy: Code(s): G93.41 - Metabolic encephalopathy Status: Acute Assessment and Plan: Resolved Most likely related to polysubstance abuse amphetamine benzos Narcotics Improved CT scan of the head normal brain (6) Closed left clavicular fracture: Qualifiers: Clavicle location: lateral end Encounter type: initial encounter Fracture alignment: displaced Qualified Code(s): S42.032A - Displaced fracture of lateral end of left clavicle, initial encounter for closed fracture Code(s): S42.002A - Fracture of unspecified part of left clavicle, initial encounter for closed fracture Status: Acute Assessment and Plan: Pending final x-ray Left arm sling Pain control seems to be effective with Dilaudid and Percocet * Treat pain prn. * Stable (7) Ribs, multiple fractures: Code(s): S22.49XA - Multiple fractures of ribs, unspecified side, initial encounter for closed fracture Status: Acute Assessment and Plan: 08/30/22: as evidence by chest x-ray and CT. Patient was educated on splinting for coughing sneezing. Treat pain p.r.n. Stable (8) Fracture of transverse process of thoracic vertebra: Code(s): S22.009A - Unspecified fracture of unspecified thoracic vertebra, initial encounter for closed fracture Status: Acute Assessment and Plan: 08/30/22: neurosurgery consult pending. treat pain prn. Time Spent With Patient Time with patient: Greater than 35 minutes Subjective Date/time seen: 09/01/22 1030 Interval history: 09/01/22 1030 Patient seems to be doing well today. He seems very anxious disorganized anyway with thought. He is ready to go however explained to him that his CK is still too high. He denies any chest pain,
[2022-09-01 14:00] VITALS: BP 149/79; PULSE 84; RESP 16; TEMP 36.6; O2SAT 99
[2022-09-01] MEDS: oxyCODONE HCL (*CRX) 5 MG TAB IR 10 MG PO (19:49)
[2022-09-01 21:40] VITALS: BP 144/70; PULSE 80; RESP 18; TEMP 36.6; O2SAT 99
[2022-09-02] MEDS: HYDROmorphone HCL INJ (*CRX) 1 MG/ML SYR IV PUSH ×5 (02:16→21:12)
[2022-09-02] MEDS: SODIUM CHLORIDE 0.9% IV 1,000 ML 250 ML IV CONT ×4 (02:16→16:22)
[2022-09-02] MEDS: oxyCODONE HCL (*CRX) 5 MG TAB IR 10 MG PO ×3 (04:05→14:06)
[2022-09-02 06:00] VITALS: BP 145/84; PULSE 100; RESP 18; TEMP 36.7; O2SAT 99
[2022-09-02 07:06] LABS: Basophils Percent Auto 0.6 % (0.2-1.2); Eosinophils Absolute Auto 0.1 K/mm3 (0-0.3); Eosinophils Percent Auto 2.7 % (0-4.4); Hematocrit 33.3 % (42.0-52.0); Hemoglobin 11.1 g/dL (14.0-18.0); Immature Granulocyte Absolute 0.03 K/mm3 (0.00-0.031); Immature Granulocyte Percent A 0.6 % (0-0.5); Lymphocytes Absolute Auto 1.28 K/mm3 (0.9-3.2); Mean Corpuscular HGB Conc 33.3 g/dl (32-36); Mean Corpuscular Hemoglobin 32.1 pg (26-34); Mean Corpuscular Volume 96.2 fl (80-100); Mean Platelet Volume 9.6 fl (7.4-10.4); Monocytes Absolute Auto 0.6 K/mm3 (0.1-0.6); Monocytes Percent Auto 12.3 % (2.6-8.5); Neutrophils Percent Auto 58.8 % (45.5-73.1); Platelet Count Result 163 k/mm3 (150-375); Red Blood Count 3.46 M/mm3 (4.6-6.20); Red Cell Distribution Width 11.5 % (11.5-14.5); White Blood Count 5.1 K/mm3 (4.5-10.0)
[2022-09-02 07:15] LABS: Alanine Aminotransferase 264 U/L (6-50); Albumin Level 3.6 g/dL (3.5-5.1); Alkaline Phosphatase 71 U/L (38-126); Anion Gap 6 mmol/L (8-16); Aspartate Amino Transferase 499 U/L (17-59); Bilirubin,Total 0.6 mg/dL (0.2-1.3); Blood Urea Nitrogen 6 mg/dL (9-20); Calcium 8.6 mg/dL (8.4-10.2); Carbon Dioxide 30 mmol/L (22-30); Chloride 101 mmol/L (98-107); Estimated CRCL calculation 121 ml/min; Estimated Glomerular Filt Rate > 60; Glucose 112 mg/dL (65-110); Magnesium 1.8 mg/dL (1.6-2.3); Potassium 3.8 mmol/L (3.4-5.0); Sodium 137 mmol/L (137-145)
[2022-09-02 08:03] LABS: Creatine Kinase 6490 U/L (55-170)
[2022-09-02] MEDS: HEPARIN SODIUM 5,000 UNITS/ML VIAL 5000 UNITS SUB-Q ×2 (09:50→21:13)
--- NOTE | 2022-09-02 10:30 | P.PNIM_ITS ---
Progress Note: A&P Assessment and Plan (1) Rhabdomyolysis: Code(s): M62.82 - Rhabdomyolysis Status: Acute Assessment and Plan: * IV fluids were increased to 250 mL/hour * Current CK is 6490 * Continue to trend CK * Trend urine output * Probably the cause for the TANNER * Continue to trend labs (2) Abnormal LFTs: Code(s): R79.89 - Other specified abnormal findings of blood chemistry Status: Acute Assessment and Plan: * AST/ALT elevated at trending down currently 499/264 * Hep panel negative * Continue to trend * Consider RUQ ultrasound * Check CK check hepatitis panel reviewed urine toxic screen check HIV * GI consult thank you for your help * CT of the abdomen pelvis negative with multiple rib fractures, T1 transverse process, and left clavicle (3) TANNER (acute kidney injury): Code(s): N17.9 - Acute kidney failure, unspecified Status: Acute Assessment and Plan: * BUN/Cr elevated upon admission * Currently back to his probably baseline * Continue IV fluids * Continue to trend labs * Adjust therapy as indicated * Remains stable (4) Polysubstance dependence including opioid type drug, episodic abuse: Code(s): F11.20 - Opioid dependence, uncomplicated; F19.20 - Other psychoactive substance dependence, uncomplicated Status: Acute Assessment and Plan: * Follow-up with rehab as outpatient * Counseling when patient is more alert * Denies regular use * Counselled about pain control (5) Acute metabolic encephalopathy: Code(s): G93.41 - Metabolic encephalopathy Status: Acute Assessment and Plan: Resolved Most likely related to polysubstance abuse amphetamine benzos Narcotics Improved CT scan of the head normal brain (6) Closed left clavicular fracture: Qualifiers: Clavicle location: lateral end Encounter type: initial encounter Fracture alignment: displaced Qualified Code(s): S42.032A - Displaced fracture of lateral end of left clavicle, initial encounter for closed fracture Code(s): S42.002A - Fracture of unspecified part of left clavicle, initial encounter for closed fracture Status: Acute Assessment and Plan: Pending final x-ray Left arm sling Pain control seems to be effective with Dilaudid and Percocet * Treat pain prn. * Stable (7) Ribs, multiple fractures: Code(s): S22.49XA - Multiple fractures of ribs, unspecified side, initial encounter for closed fracture Status: Acute Assessment and Plan: 08/30/22: as evidence by chest x-ray and CT. Patient was educated on splinting for coughing sneezing. Treat pain p.r.n. Stable (8) Fracture of transverse process of thoracic vertebra: Code(s): S22.009A - Unspecified fracture of unspecified thoracic vertebra, initial encounter for closed fracture Status: Acute Assessment and Plan: 08/30/22: neurosurgery consult pending. treat pain prn. Time Spent With Patient Time with patient: Greater than 35 minutes Subjective Date/time seen: 09/02/22 1030 Interval history: 09/02/22 1030 Patient seems stable today. He still having a lot of pain however he stated that pain meds say is helping. He denies any chest pain, shortness a breath, nausea, vomiting, diarrhea, constipation,
--- NOTE | 2022-09-02 10:30 | PM.IMPN ---
Progress Note: A&P Assessment and Plan (1) Rhabdomyolysis: Code(s): M62.82 - Rhabdomyolysis Status: Acute Assessment and Plan: IV fluids were increased to 250 mL/hour Current CK is 6490 Continue to trend CK Trend urine output Probably the cause for the TANNER Continue to trend labs (2) Abnormal LFTs: Code(s): R79.89 - Other specified abnormal findings of blood chemistry Status: Acute Assessment and Plan: AST/ALT elevated at trending down currently 499/264 Hep panel negative Continue to trend Consider RUQ ultrasound Check CK check hepatitis panel reviewed urine toxic screen check HIV GI consult thank you for your help CT of the abdomen pelvis negative with multiple rib fractures, T1 transverse process, and left clavicle (3) TANNER (acute kidney injury): Code(s): N17.9 - Acute kidney failure, unspecified Status: Acute Assessment and Plan: BUN/Cr elevated upon admission Currently back to his probably baseline Continue IV fluids Continue to trend labs Adjust therapy as indicated Remains stable (4) Polysubstance dependence including opioid type drug, episodic abuse: Code(s): F11.20 - Opioid dependence, uncomplicated; F19.20 - Other psychoactive substance dependence, uncomplicated Status: Acute Assessment and Plan: Follow-up with rehab as outpatient Counseling when patient is more alert Denies regular use Counselled about pain control (5) Acute metabolic encephalopathy: Code(s): G93.41 - Metabolic encephalopathy Status: Acute Assessment and Plan: Resolved Most likely related to polysubstance abuse amphetamine benzos Narcotics Improved CT scan of the head normal brain (6) Closed left clavicular fracture: Qualifiers: Clavicle location: lateral end Encounter type: initial encounter Fracture alignment: displaced Qualified Code(s): S42.032A - Displaced fracture of lateral end of left clavicle, initial encounter for closed fracture Code(s): S42.002A - Fracture of unspecified part of left clavicle, initial encounter for closed fracture Status: Acute Assessment and Plan: Pending final x-ray Left arm sling Pain control seems to be effective with Dilaudid and Percocet Treat pain prn. Stable (7) Ribs, multiple fractures: Code(s): S22.49XA - Multiple fractures of ribs, unspecified side, initial encounter for closed fracture Status: Acute Assessment and Plan: 08/30/22: as evidence by chest x-ray and CT. Patient was educated on splinting for coughing sneezing. Treat pain p.r.n. Stable (8) Fracture of transverse process of thoracic vertebra: Code(s): S22.009A - Unspecified fracture of unspecified thoracic vertebra, initial encounter for closed fracture Status: Acute Assessment and Plan: 08/30/22: neurosurgery consult pending. treat pain prn. Time Spent With Patient Time with patient: Greater than 35 minutes Subjective Date/time seen: 09/02/22 103 Interval history: 09/02/22 103 Patient seems stable today. He still having a lot of pain however he stated that pain meds say is helping. He denies any chest pain, shortness a breath, nausea, vomiting, diarrhea, constipation, weakness fatigue. CK is down to 6490 today. AST ALT continue trend down. 09/01/22 1030 Patient seems to be doing well today. He seems very anxious disorganized anyway with thought. He is ready to go however explained to him that his CK is still too high. He denies any chest pain, shortness a breath, nausea, vomiting, diarrhea, constipation, weakness or fatigue. He is still having a pain especially in his chest from the rib fractures and that the shoulder. He denies any urinary difficulties. 08/31/22 Patient is a 36-year-old male who is here for fall and rhabdomyolysi
--- NOTE | 2022-09-02 10:54 | WPDNEUROSGCN ---
Assessment and Plan Assessment and plan (1) Fracture of transverse process of thoracic vertebra: Code(s): S22.009A - Unspecified fracture of unspecified thoracic vertebra, initial encounter for closed fracture Status: Acute Plan Pepe is a 36-year-old gentleman who experienced a fall resulting in a clavicle injury as well as fracture of the T1 transverse process and of the 1st 2 ribs. No particular treatment is necessary for this problem. Bracing will not likely be effective. He should refrain from using his upper extremity strenuously anti follows up with us in 6 weeks with a new CT scan. He should not lift more than 10 lb. Review of Systems Review of Systems: Patient denies shortness of breath, cough, fever, chills, nausea, vomiting, weight loss, weight gain, dysuria, chest pain. He has neck and shoulder pain as above. He Has a history of polysubstance abuse. [facility] Past Medical History Medical History (Updated 09/02/22 @ 11:00 by Estuardo Young MD) Rhabdomyolysis Social History Social History Smoking status: Never smoker Alcohol intake: former Substance use: former Substance use type: amphetamines Other substance usage details: see positive urine test. pt wont answer. Has the Lack of Transportation Kept You From Medical Appointments or From Getting Medications?: No Within the Past 12 Months, Were You Worried Whether Your Food Would Run Out Before You Got Money to Buy More?: Never True What is Your Housing Situation Today?: I Do Not Have Housing Are You Worried That in the Next 2 Months, You May Not Have Your Own Housing to Live In?: Decline to Answer Do You Have Trouble Paying Your Heating Or Electricity Bill?: Decline to Answer Do You Have Trouble Paying For Medicines?: Decline to Answer Are You Currently Unemployed and Looking for Work?: Decline to Answer Highest Level of Education Completed: Decline to Answer Do You Have Trouble With Childcare or the Care of a Family Member?: Decline to Answer Spiritual care concerns: No Meds Home Medications and Allergies Home Medications Medication Instructions Recorded Confirmed Type Unable to Obtain Home Medications 08/31/22 08/31/22 History Allergies Allergy/AdvReac Type Severity Reaction Status Date / Time No Known Allergies Allergy Verified 08/30/22 01:06 Vital Signs Vital Signs - 24 hr 09/01/22 14:00 09/01/22 21:40 09/01/22 20:00 Temperature 97.8 F 97.9 F Pulse Rate 84 80 Respiratory Rate 16 18 Blood Pressure 149/79 H 144/70 H Pulse Oximetry 99 99 Oxygen Delivery Room Air 09/02/22 06:00 Temperature 98.0 F Pulse Rate 100 Respiratory Rate 18 Blood Pressure 145/84 H Pulse Oximetry 99 Oxygen Delivery Exam Neuro: Other: The patient is a normally developed, normal appearing male supine in the hospital bed in no acute distress. He is awake, alert, oriented x3 with of good fund of knowledge but poor recall of events. His face is symmetrical, his tongue is midline, his pupils are equal and reactive and his extraocular movements are intact. There is no upper extremity drift, dysmetria or dyspraxia. Strength is normal in the bilateral upper extremities to direct confrontation. Sensation is intact to light touch throughout the upper extremities. There is range of motion difficulty of the left shoulder and it is in a sling. Proximal muscles of the left upper extremity could not be tested. Deep tendon reflexes were normal in the right upper extremity. Gait station and transfers are reported normal. Review studies: CT scan of the cervical spine demonstrates a T1 transverse process fracture and proximal fractures of the 1st and 2nd rib. Results Labs CBC & Chem 7: 09/02/22 06:43 09/02/22 06:43 Labs: Short CBC 09/02/22 Range/Units 06:43 WBC 5.1 (4.5-10.0) K/mm3 Hgb
[2022-09-02 14:00] VITALS: BP 128/100; PULSE 74; RESP 18; TEMP 36.4; O2SAT 96
[2022-09-02 20:00] VITALS: PULSE 86; RESP 20; O2SAT 97
[2022-09-02 22:00] VITALS: BP 150/105; PULSE 86; RESP 20; TEMP 36.8; O2SAT 97
[2022-09-02 22:04] VITALS: O2SAT 97
[2022-09-02] MEDS: LORazepam INJ (*CRX) 2 MG/ML VIAL 0.5 MG IV PUSH (22:04)
[2022-09-02 23:16] VITALS: BP 140/85
[2022-09-03] MEDS: HYDROmorphone HCL INJ (*CRX) 1 MG/ML SYR IV PUSH ×3 (01:12→10:39)
[2022-09-03] MEDS: SODIUM CHLORIDE 0.9% IV 1,000 ML 250 ML IV CONT ×3 (01:12→09:29)
[2022-09-03 06:00] VITALS: BP 143/102; PULSE 80; RESP 20; TEMP 36.7; O2SAT 95
[2022-09-03 06:31] LABS: Basophils Absolute Auto 0.1 K/mm3 (0.0-0.1); Basophils Percent Auto 1.2 % (0.2-1.2); Eosinophils Absolute Auto 0.2 K/mm3 (0-0.3); Eosinophils Percent Auto 3.7 % (0-4.4); Hematocrit 32.3 % (42.0-52.0); Hemoglobin 11.2 g/dL (14.0-18.0); Immature Granulocyte Absolute 0.01 K/mm3 (0.00-0.031); Immature Granulocyte Percent A 0.2 % (0-0.5); Lymphocytes Percent Auto 24.9 % (18.3-44.2); Mean Corpuscular HGB Conc 34.7 g/dl (32-36); Mean Corpuscular Volume 92.3 fl (80-100); Mean Platelet Volume 9.5 fl (7.4-10.4); Monocytes Absolute Auto 0.8 K/mm3 (0.1-0.6); Monocytes Percent Auto 16.2 % (2.6-8.5); Neutrophils Absolute Auto 2.6 K/mm3 (1.3-6.7); Neutrophils Percent Auto 53.8 % (45.5-73.1); Platelet Count Result 192 k/mm3 (150-375); Red Cell Distribution Width 11.6 % (11.5-14.5); White Blood Count 4.8 K/mm3 (4.5-10.0)
[2022-09-03 06:47] LABS: Alanine Aminotransferase 237 U/L (6-50); Albumin Level 3.6 g/dL (3.5-5.1); Alkaline Phosphatase 75 U/L (38-126); Anion Gap 7 mmol/L (8-16); Aspartate Amino Transferase 283 U/L (17-59); Bilirubin,Total 0.8 mg/dL (0.2-1.3); Blood Urea Nitrogen 7 mg/dL (9-20); Calcium 8.3 mg/dL (8.4-10.2); Carbon Dioxide 27 mmol/L (22-30); Chloride 103 mmol/L (98-107); Creatine Kinase 2479 U/L (55-170); Estimated CRCL calculation 157 ml/min; Estimated Glomerular Filt Rate > 60; Glucose 100 mg/dL (65-110); Magnesium 2.1 mg/dL (1.6-2.3); Potassium 3.8 mmol/L (3.4-5.0); Sodium 137 mmol/L (137-145)
[2022-09-03] MEDS: HEPARIN SODIUM 5,000 UNITS/ML VIAL 5000 UNITS SUB-Q (08:23)
[2022-09-03] MEDS: oxyCODONE HCL (*CRX) 5 MG TAB IR 10 MG PO (08:23)
--- NOTE | 2022-09-03 11:45 | PM.DS ---
DS: Admitting Diagnosis Discharge Date 09/03/22 1145 Admitting Diagnosis rhabdomyolysis, transaminitis, acute metabolic encephalopathy, TANNER, rib fractures, clavicle fracture DS: Discharge Diagnosis Discharge Diagnosis (1) Rhabdomyolysis: Code(s): M62.82 - Rhabdomyolysis Status: Acute Assessment and Plan: IV fluids were increased to 250 mL/hour Current CK is 6490 Continue to trend CK Trend urine output Probably the cause for the TANNER Continue to trend labs (2) Abnormal LFTs: Code(s): R79.89 - Other specified abnormal findings of blood chemistry Status: Acute Assessment and Plan: AST/ALT elevated at trending down currently 499/264 Hep panel negative Continue to trend Consider RUQ ultrasound Check CK check hepatitis panel reviewed urine toxic screen check HIV GI consult thank you for your help CT of the abdomen pelvis negative with multiple rib fractures, T1 transverse process, and left clavicle (3) TANNER (acute kidney injury): Code(s): N17.9 - Acute kidney failure, unspecified Status: Acute Assessment and Plan: BUN/Cr elevated upon admission Currently back to his probably baseline Continue IV fluids Continue to trend labs Adjust therapy as indicated Remains stable (4) Polysubstance dependence including opioid type drug, episodic abuse: Code(s): F11.20 - Opioid dependence, uncomplicated; F19.20 - Other psychoactive substance dependence, uncomplicated Status: Acute Assessment and Plan: Follow-up with rehab as outpatient Counseling when patient is more alert Denies regular use Counselled about pain control (5) Acute metabolic encephalopathy: Code(s): G93.41 - Metabolic encephalopathy Status: Acute Assessment and Plan: Resolved Most likely related to polysubstance abuse amphetamine benzos Narcotics Improved CT scan of the head normal brain (6) Closed left clavicular fracture: Qualifiers: Clavicle location: lateral end Encounter type: initial encounter Fracture alignment: displaced Qualified Code(s): S42.032A - Displaced fracture of lateral end of left clavicle, initial encounter for closed fracture Code(s): S42.002A - Fracture of unspecified part of left clavicle, initial encounter for closed fracture Status: Acute Assessment and Plan: Pending final x-ray Left arm sling Pain control seems to be effective with Dilaudid and Percocet Treat pain prn. Stable (7) Ribs, multiple fractures: Code(s): S22.49XA - Multiple fractures of ribs, unspecified side, initial encounter for closed fracture Status: Acute Assessment and Plan: 08/30/22: as evidence by chest x-ray and CT. Patient was educated on splinting for coughing sneezing. Treat pain p.r.n. Stable (8) Fracture of transverse process of thoracic vertebra: Code(s): S22.009A - Unspecified fracture of unspecified thoracic vertebra, initial encounter for closed fracture Status: Acute Assessment and Plan: 08/30/22: neurosurgery consult pending. treat pain prn. DS: Summary Hospital Course Hospital Course: patient is a 36-year-old male with a past medical history anxiety, bipolar disorder, and ADHD who presented the ED with complaints of acute metabolic encephalopathy. it was never truly understood would head really happened however patient came in and CK was elevated greater than 16,000. patient was started on IV fluids and CK was on trend. Currently CK is 2479. Patient is also been tolerating fluids. Patient was also noted to have an elevated BUN and creatinine however with the IV fluids BUN creatinine have came back to baseline which is 7/0.60. Liver enzymes were also noted to be severely elevated however have trended down as well and are currently AST 283 ALT 237. Hepatitis panel was nega
--- NOTE | 2022-09-03 11:45 | P.DS_ITS ---
DS: Admitting Diagnosis Discharge Date 09/03/22 1145 Admitting Diagnosis rhabdomyolysis, transaminitis, acute metabolic encephalopathy, TANNER, rib fractures, clavicle fracture DS: Discharge Diagnosis Discharge Diagnosis (1) Rhabdomyolysis: Code(s): M62.82 - Rhabdomyolysis Status: Acute Assessment and Plan: * IV fluids were increased to 250 mL/hour * Current CK is 6490 * Continue to trend CK * Trend urine output * Probably the cause for the TANNER * Continue to trend labs (2) Abnormal LFTs: Code(s): R79.89 - Other specified abnormal findings of blood chemistry Status: Acute Assessment and Plan: * AST/ALT elevated at trending down currently 499/264 * Hep panel negative * Continue to trend * Consider RUQ ultrasound * Check CK check hepatitis panel reviewed urine toxic screen check HIV * GI consult thank you for your help * CT of the abdomen pelvis negative with multiple rib fractures, T1 transverse process, and left clavicle (3) TANNER (acute kidney injury): Code(s): N17.9 - Acute kidney failure, unspecified Status: Acute Assessment and Plan: * BUN/Cr elevated upon admission * Currently back to his probably baseline * Continue IV fluids * Continue to trend labs * Adjust therapy as indicated * Remains stable (4) Polysubstance dependence including opioid type drug, episodic abuse: Code(s): F11.20 - Opioid dependence, uncomplicated; F19.20 - Other psychoactive substance dependence, uncomplicated Status: Acute Assessment and Plan: * Follow-up with rehab as outpatient * Counseling when patient is more alert * Denies regular use * Counselled about pain control (5) Acute metabolic encephalopathy: Code(s): G93.41 - Metabolic encephalopathy Status: Acute Assessment and Plan: Resolved Most likely related to polysubstance abuse amphetamine benzos Narcotics Improved CT scan of the head normal brain (6) Closed left clavicular fracture: Qualifiers: Clavicle location: lateral end Encounter type: initial encounter Fracture alignment: displaced Qualified Code(s): S42.032A - Displaced fracture of lateral end of left clavicle, initial encounter for closed fracture Code(s): S42.002A - Fracture of unspecified part of left clavicle, initial encounter for closed fracture Status: Acute Assessment and Plan: Pending final x-ray Left arm sling Pain control seems to be effective with Dilaudid and Percocet * Treat pain prn. * Stable (7) Ribs, multiple fractures: Code(s): S22.49XA - Multiple fractures of ribs, unspecified side, initial encounter for closed fracture Status: Acute Assessment and Plan: 08/30/22: as evidence by chest x-ray and CT. Patient was educated on splinting for coughing sneezing. Treat pain p.r.n. Stable (8) Fracture of transverse process of thoracic vertebra: Code(s): S22.009A - Unspecified fracture of unspecified thoracic vertebra, initial encounter for closed fracture Status: Acute Assessment and Plan: 08/30/22: neurosurgery consult pending. treat pain prn. DS: Summary Hospital Course Hospital Course: patient is a 36-year-old male with a past medical history anxiety, bipolar disorder, and ADHD who presented the E
[2022-09-03] MEDS: KETOROLAC 30 MG/ML VIAL (*BKC) IV PUSH (12:41)
== END 2022-09-03 13:37 | disposition home or self-care (01) | DRG 557 ==
LOC: ANHED 08-30 00:14 → ANH3MEDSUR 08-30 05:44
PROVIDERS: Nurse Practitioner Adult Health; Student in an Organized Health Care Education/Training Program; Admitting Provider Internal Medicine; Emergency Provider Emergency Medicine; Visit Provider Nurse Practitioner
DX: M62.82 Rhabdomyolysis (principal); G92.8 Other toxic encephalopathy; S22.019A Unspecified fracture of first thoracic vertebra, initial encounter for closed fracture; S22.42XA Multiple fractures of ribs, left side, initial encounter for closed fracture; N17.9 Acute kidney failure, unspecified; N39.0 Urinary tract infection, site not specified; F11.20 Opioid dependence, uncomplicated; F19.20 Other psychoactive substance dependence, uncomplicated; S42.032A Displaced fracture of lateral end of left clavicle, initial encounter for closed fracture; W19.XXXA Unspecified fall, initial encounter; Z20.822 Contact with and (suspected) exposure to COVID-19; Z23 Encounter for immunization; R79.89 Other specified abnormal findings of blood chemistry; E86.0 Dehydration; F31.9 Bipolar disorder, unspecified; F41.9 Anxiety disorder, unspecified; F90.9 Attention-deficit hyperactivity disorder, unspecified type
CPT/HCPCS: 36415; 70450; 71045; 71260; 72125; 72129; 72132; 73030; 74177; 80053; 80074; 80307; 81001; 82550; 83735; 84443; 85025; 85610; 85730; 86703; 87086; 90471; 90715; 93005; 96360; 96361; 96365; 96372; 99285; A4565; A9270; G0378; G0432; J0696; J1170; J1644; J1885; J2060; J7030; J7120; Q9967; U0003; U0005